=== PATIENT | female | born 1985 | race Caucasian/White ===

== ENCOUNTER 2017-01-03 19:43 | Emergency (ER) | payer BC ==
[2017-01-03 20:42] VITALS: BP 115/73
--- NOTE | 2017-01-03 21:01 | UC ---
Throat Pain/Nasal Demar HPI - HPI Summary HPI Summary: complaint of nasal congestion adncough that started last ngiht feels feverish and has chills sore throat headaches entire body feelsachy denies N/V/D not taking any medication for symptoms - History of Current Complaint Chief Complaint: UCRespiratory Stated Complaint: CHEST PAIN WHEN COUGHING Time Seen by Provider: 01/03/17 20:44 Hx Obtained From: Patient Hx Last Menstrual Period: 12/10/16 - Allergies/Home Medications Allergies/Adverse Reactions: Allergies Allergy/AdvReac Type Severity Reaction Status Date / Time No Known Allergies Allergy Verified 11/24/13 18:26 Home Medications: Home Medications NK [No Home Medications Reported] 01/03/17 [History Confirmed 01/03/17] PMH/Surg Hx/FS Hx/Imm Hx Previously Healthy: Yes Endocrine History Of: Denies: Diabetes, Thyroid Disease Cardiovascular History Of: Denies: Cardiac Disorders, Hypertension Respiratory History Of: Denies: COPD, Asthma GI/ History Of: Denies: Ulcer - Surgical History Surgical History: None - Family History Known Family History: Negative: Cardiac Disease, Hypertension, Diabetes - Social History Occupation: Employed Full-time Lives: With Family Alcohol Use: None Substance Use Type: None Smoking Status (MU): Never Smoked Tobacco Review of Systems Constitutional: Fever, Chills, Fatigue Skin: Negative Eyes: Negative ENT: Sore Throat, Nasal Discharge Respiratory: Cough Cardiovascular: Negative Gastrointestinal: Negative Genitourinary: Negative Motor: Negative Neurovascular: Negative Musculoskeletal: Myalgia Neurological: Headache Psychological: Negative All Other Systems Reviewed And Are Negative: Yes Physical Exam Triage Information Reviewed: Yes Appearance: Well-Appearing, No Pain Distress Vital Signs: Initial Vital Signs Temp 97.7 F 01/03/17 20:36 Pulse 109 01/03/17 20:36 Resp 18 01/03/17 20:36 BP 115/73 01/03/17 20:36 Pulse Ox 100 01/03/17 20:36 Vital Signs Reviewed: Yes Eyes: Positive: Conjunctiva Clear ENT: Positive: Pharyngeal erythema, Nasal congestion, TMs normal Neck: Positive: No Lymphadenopathy Respiratory: Positive: Lungs clear, Normal breath sounds, No respiratory distress Cardiovascular: Positive: RRR, No Murmur, Pulses Normal Abdomen Description: Positive: Nontender, Soft Bowel Sounds: Positive: Present Musculoskeletal: Positive: No Edema Neurological: Positive: Alert Psychological Exam: Normal Skin Exam: Normal Throat Pain/Nasal Course/Dx - Differential Dx/Diagnosis Differential Diagnosis/HQI/PQRI: Influenza, Pharyngitis, URI Provider Diagnoses: influenza Discharge - Discharge Plan Condition: Stable Disposition: HOME Patient Education Materials: Influenza (ED) Referrals: No Primary Care Phys,NOPCP [Primary Care Provider] - [facility] [place] PHYSICIAN REFERRAL [Outside] Additional Instructions: TREATING THE FLU (Influenza) What is the Flu? Influenza, or "flu," is an infection of the breathing tubes and lungs. Flu happens mostly in late fall, winter, or early spring. It is very easily spread from one person to another by coughing and sneezing. The flu affects people of all ages. Symptoms Might Include: Stuffed up or runny nose Cough which may be worse at night that lasts for one to two weeks Fever especially the first 2 days and which may go up and down Headache and muscle aches Mild sore throat Poor appetite Tiredness Influenza (Flu) Vaccine Much of the illness and caused by influenza can be prevented by annual flu vaccination. It is especially recommended for people who are at high risk. Those at higher risk include all people aged 65 years or older and people of any age with chronic diseases of the heart, lung or kidneys, diabetes, immunosuppression, or severe forms of anemia. Other high-risk groups are, women who will be more than 3 months during the flu season, and children. Treatment Recommendations: Take acetaminophen (Tylenol, etc.) for aches and fever. Do not ever give aspirin to children. Drink lots of fluids. Use a cool-mist humidifier night and day if it helps you. Keep room at a comfortable temperature for you. Do not overheat the room. Do not overdress. Do not smoke. Get as much rest as you can. Call Your Doctor or Return Here IF: You have a fever that lasts for more than three days. You have trouble breathing. You begin to cough up green, yellow, or red mucous. Your cough gets worse or you have chest pain with coughing or deep breathing. You start to have any other symptoms that worry you.
== END 2017-01-03 21:34 | disposition home or self-care (01) ==
LOC: UCEAST 19:43
DX: J11.1 Influenza due to unidentified influenza virus with other respiratory manifestations (principal)
CPT/HCPCS: 87502; 99201; G0463

== ENCOUNTER 2018-03-08 19:42 | Inpatient (IN) | payer BC ==
--- NOTE | 2018-03-08 20:56 | HP ---
General Information - General Information Maternal Age: 32 Grav: 4 Para: 3 SAB: 0 IEA: 0 Estimated Due Date: 03/09/18 Determined By: LMP Gestational Age in Weeks and Days: 39 Weeks and 6 Days Maternal Blood Type and Rh: A Positive - Results this Serology/RPR Result: Non-Reactive Rubella Result: Immune HBsAg Result: Negative HIV Result: Negative GBS Culture Result: Negative Past Medical History Delivery History: Hx Uncomplicated Vaginal Delivery - 2005, 14 HRS, MALE, 6' 8". 2007, 14 HRS, FEMALE 8'. , Hx Complicated Vaginal Delivery - 2011 FEMALE 8' INDUCTION FOR HTN Pertinent Past Medical History: See Records - LATE CARE SEEKER; LOW LYING PLACENTA RESOLVED Pertinent Past Surgical History: None Pertinent Family History: Non-Contributory - Antepartal Records Antepartal Records: Reviewed, Uncomplicated Review of Systems Constitutional: Comfortable CV Complaint: No Respiratory: Shortness of Breath: No Gastrointestinal: No Nausea/Vomiting Genitourinary: No Dysuria, No Leaking Fluid Musculoskeletal: Contractions Neurological: No Headache, No Visual Changes Movement: Normal Exam Allergies/Adverse Reactions: Allergies No Known Allergies Allergy (Verified 03/08/18 20:15) t 97.4; p 71; bp 122/75; r 20 - Measurements Height: 5 ft 5 in Weight: 162 lb Weight in lbs: 162 Body Mass Index (BMI): 26.9 Pre- Weight: 138 lb Weight Gained This : 24 lbs and 0 ozs - Exam Abdomen: No Upper Quadrant Pain Breast: Breast Exam Deferred CVA: No CVA Tenderness Extremities: No Edema Heart: Normal Rhythm/Heart Sounds HEENT: No Significant Findings Lungs: Clear Bilaterally Rectal: Rectal Exam Deferred Thyroid: No Thyromegaly - Abdominal Exam Abdomen Exam: Non-Tender, Fundal Height Consistent with Dates Targeted Exam Findings See L&D Outpatient Visit Provider Note for Findings: N/A Estimated Weight: 7lbs Cervical Exam: 5cm Effacement: 70% Station: -1 Presenting Part: Vertex Membrane Status: Bulging Bleeding/Discharge: Bloody Show EFM Findings - External Monitor Findings Baseline Heart Rate: 150 External Monitor Findings: Accelerations Present, No Pattern of Variable or Late Decelerations, Variability Moderate, Baseline Stable Contractions: Irregular, Moderate Assessment/Plan - Reason for Visit Reason for Visit: labor evaluation - Plan Plan: Observe, Early Labor - Date/Time of Admission Date of Admission: 03/08/18 Time of Admission: 20:59
[2018-03-08 23:47] LABS: Hematocrit 42 % (35-47); Hemoglobin 14.2 g/dl (12.0-16.0); Mean Corpuscular HGB Conc 34 g/dl (31-36); Mean Corpuscular Hemoglobin 32 pg (27-31); Mean Corpuscular Volume 95 fL (80-97); Red Blood Count 4.44 10^6/ul (4.0-5.4); Red Cell Distribution Width 14 % (10.5-15); White Blood Count 12.4 10^3/ul (3.5-10.8)
[2018-03-08] MEDS ORDERED: fentaNYL* 50 MCG/ML 2 ML VIAL (100 MCG VIAL) IV ONE (23:56)
[2018-03-09] MEDS ORDERED: fentaNYL* 50 MCG/ML 2 ML VIAL (100 MCG VIAL) ONE (00:07)
[2018-03-09 00:34] LABS: ABS Basophils 0.1 10^3/ul (0-0.2); ABS Eosinophils 0 10^3/ul (0-0.6); ABS Lymphocytes 1.2 10^3/ul (1.0-4.8); ABS Monocytes 0.6 10^3/ul (0-0.8); ABS Neutrophils 10.5 10^3/ul (1.5-7.7); ABS Nucleated RBC 0 10^3/ul; Eosinophil % 0.2 % (0-6); Lymphocyte % 9.7 % (25-47); Mean Platelet Volume 11.9 um3 (7.4-10.4); Nucleated Red Blood Cells % 0; Platelet Count 90 10^3/ul (150-450)
[2018-03-09] MEDS ORDERED: Witch Hazel PAD* JAR TOPICAL PRN (01:33)
[2018-03-09] MEDS ORDERED: Acetaminophen TAB* 325 MG PO PRN (01:33)
[2018-03-09] MEDS ORDERED: Dibucaine 1% 28.35 GM TUBE PR PRN (01:33)
[2018-03-09] MEDS ORDERED: Tetan/Diph/Pertus SYR(Tdap)* 0.5 ML SYR(BOOSTRIX) use SYR IM ONE (01:33)
[2018-03-09] MEDS ORDERED: Ibuprofen TAB* 600 MG ONE (01:54)
[2018-03-09] MEDS: Ibuprofen TAB* 600 MG PO PRN ×3 (01:55→14:55)
[2018-03-09] MEDS: Docusate CAP* 100 MG PO SCH ×3 (08:17→21:07)
[2018-03-10 07:38] VITALS: BP 105/61
[2018-03-10] MEDS: Ibuprofen TAB* 600 MG PO PRN (08:03)
[2018-03-10] MEDS: Docusate CAP* 100 MG PO SCH (08:04)
[2018-03-10] MEDS ORDERED: Ferrous Gluconate TAB* 324 MG TAB PO SCH (09:00)
== END 2018-03-10 10:56 | disposition home or self-care (01) | DRG 560 ==
LOC: MCHOBOUT 19:42 → MCHOB 20:47
PROVIDERS: ADMIT Midwife; ATTEND Midwife
PROC: 10E0XZZ Delivery of Products of Conception, External Approach (ICD-10-PCS; principal; 2018-03-08)
PROC: 0HQ9XZZ Repair Perineum Skin, External Approach (ICD-10-PCS; 2018-03-08)
PROC: 4A1HX4Z Monitoring of Products of Conception, Cardiac Electrical Activity, External Approach (ICD-10-PCS; 2018-03-08)
PROC: 10907ZC Drainage of Amniotic Fluid, Therapeutic from Products of Conception, Via Natural or Artificial Opening (ICD-10-PCS; 2018-03-08)
DX: O70.0 First degree perineal laceration during delivery (principal); Z3A.40 40 weeks gestation of pregnancy; Z37.0 Single live birth
CPT/HCPCS: 36415; 85025; 85060; 86850; 86900; 86901; A9270-GY; J3010